=== PATIENT | male | born 1960 | race Caucasian/White ===

== ENCOUNTER → 2016-12-07 12:43 | Outpatient (CLI) | payer MEDICAID ==
[2012-09-25 10:32] VITALS: BMI 18.4
== END | disposition home or self-care (01) ==
LOC: D.US 12:43
DX: N23 Unspecified renal colic (principal)

== ENCOUNTER 2017-01-06 15:16 | Inpatient (IN) | payer MEDICAID ==
[~2017-01-06] VITALS: Ht 195.6 cm; Wt 65.8 kg
--- NOTE | 2017-01-06 15:40 | NUR ---
RECIEVED PT TO FLOOR AT THIS TIME, ORIENTED TO ROOM. IV STARTED BY JUAN MIGUEL DOWNS RN. ASSESSMENT DONE PER FLOWSHEET, HISTORY OBTAINED. BED IN LOW POSITION AND CALL LIGHT WITHIN REACH. WILL CONTINUE TO MONITOR.
[2017-01-06 15:58] VITALS: BP 117/73
[2017-01-06 16:31] LABS: BASOPHILS 0.6 % (0-2); EOSINOPHILS 5.5 % (0-7); HEMATOCRIT 38.7 % (42.0-54.0); IMMATURE GRANULOCYTES 0.2 % (0-5); LYMPHOCYTES 27.5 % (15-50); MCH 31.2 pg (26.0-34.0); MCHC 33.6 g/dL (31.0-37.0); MCV 92.8 fL (80.0-100.0); MONOCYTES 8.1 % (2-11); NEUTROPHILS 58.1 % (40-80); PLATELET COUNT 177 10x3/uL (130-400); RBC 4.17 10x6/uL (4.20-6.10); WBC 6.5 10x3/uL (4.8-10.8)
[2017-01-06 16:44] LABS: ALBUMIN 3.1 g/dL (3.4-5.0); ANION GAP 12.2 mmol/L (8-16); BILIRUBIN - TOTAL 0.36 mg/dL (0.2-1.3); CALCIUM 8.8 mg/dL (8.5-10.1); CARBON DIOXIDE 28.8 mmol/L (21.0-32.0); CREATININE - SERUM 1.3 mg/dL (0.6-1.3); PROTEIN - SERUM 7.2 g/dL (6.4-8.2)
[2017-01-06 17:47] VITALS: BP 117/73; BMI 17.2
[2017-01-06 20:00] VITALS: BP 104/65
[2017-01-07] VITALS: BP 122/58
[2017-01-07 04:00] VITALS: BP 121/61
[2017-01-07 04:54] LABS: BASOPHILS 0.6 % (0-2); EOSINOPHILS 5.7 % (0-7); HEMATOCRIT 37.5 % (42.0-54.0); HEMOGLOBIN 12.6 g/dL (13.5-17.5); IMMATURE GRANULOCYTES 0.2 % (0-5); LYMPHOCYTES 38.2 % (15-50); MCHC 33.6 g/dL (31.0-37.0); MCV 92.1 fL (80.0-100.0); MEAN PLATELET VOLUME 11.5 fL (7.4-10.4); MONOCYTES 9.2 % (2-11); NEUTROPHILS 46.1 % (40-80); PLATELET COUNT 190 10x3/uL (130-400); RBC 4.07 10x6/uL (4.20-6.10); RDW 13.9 % (11.5-14.5); WBC 6.2 10x3/uL (4.8-10.8)
[2017-01-07 05:33] LABS: ALBUMIN 2.7 g/dL (3.4-5.0); ANION GAP 11.9 mmol/L (8-16); BILIRUBIN - TOTAL 0.27 mg/dL (0.2-1.3); CALCIUM 8.7 mg/dL (8.5-10.1); CARBON DIOXIDE 27.8 mmol/L (21.0-32.0); CREATININE - SERUM 1.2 mg/dL (0.6-1.3); PROTEIN - SERUM 6.6 g/dL (6.4-8.2)
[2017-01-07 05:34] LABS: POTASSIUM - SERUM 4.7 mmol/L (3.5-5.1)
--- NOTE | 2017-01-07 07:15 | NUR ---
REPORT RECEIVED FROM METAL MACHINE OPERATOR NURSE. CALL LIGHT IN REACH.
[2017-01-07 08:05] VITALS: BP 121/66
[2017-01-07] MEDS ORDERED: PLAVIX75 MG PO (08:48)
[2017-01-07] MEDS ORDERED: LEXAPRO10 MG (08:49)
[2017-01-07] MEDS ORDERED: LIPITOR80 MG (08:49)
[2017-01-07] MEDS ORDERED: BAYER CHEWABLE81 MG PO (08:49)
[2017-01-07] MEDS ORDERED: LOPRESSOR25 MG PO (08:50)
[2017-01-07] MEDS ORDERED: PROAIR HFA8.5 GM INH (08:51)
[2017-01-07] MEDS ORDERED: HYDROCODON-ACE1 EAC7 PO (08:52)
--- NOTE | 2017-01-07 09:02 | NUR ---
ASSESSMENT COMPLETED. NORCO PO PER C/O PAIN OF 5 TO INCISION. SCDs EXPLAINED AND OFFERED BUT PATIENT REFUSED. REFUSES PASSWORD AT THIS TIME. SPUTUM CUP GIVEN TO PATIENT FOR SPUTUM SAMPLE. MED REC REVIEWED IN CHART. CARE PLAN ALSO REVIEWED. CALL LIGHT IN REACH. WILL CONTINUE WITH PLAN OF CARE.
[2017-01-07 10:37] VITALS: Ht 195.6 cm; Wt 65.8 kg
--- NOTE | 2017-01-07 11:06 | NUR ---
STATES PAIN HAS DECREASED TO A 5. HAD SHOWER AND AMBULATED IN ROOM.
[2017-01-07 12:12] VITALS: BP 114/69
--- NOTE | 2017-01-07 13:54 | NUR ---
REQUESTING ANOTHER PAIN PILL BUT NORCO IS ORDERED FOR EVERY 12 HOURS PRN. WILL CALL MD TO SEE IF PATIENT CAN TAKE IT LIKE HE IS AT HOME.
--- NOTE | 2017-01-07 14:59 | NUR ---
SPOKE WITH DR. BRIDGES. STATES PAIN MEDS CAN GET CHANGED TO EVERY 6 HOURS INSTEAD OF EVERY 4 HOURS.
--- NOTE | 2017-01-07 15:22 | NUR ---
ADMINISTERED NORCO PO. CALL LIGHT IN REACH.
[2017-01-07 16:07] VITALS: BP 119/75
--- NOTE | 2017-01-07 16:20 | NUR ---
STATES PAIN HAS DECREASED TO A 5.
--- NOTE | 2017-01-07 18:00 | NUR ---
AMBULATING IN HALLWAY. DENIES ANY NEEDS AT PRESENT.
--- NOTE | 2017-01-07 18:04 | NUR ---
NO CHNAGES IN INITIAL ASSESSMENT. CALL LIGHT IN REACH. STILL REFUSES SCDs. WILL CONTINUE WITH PLAN OF CARE.
--- NOTE | 2017-01-07 18:15 | NUR ---
SPUTUM CX COLLECTED AND SENT TO LAB.
[2017-01-07 20:00] VITALS: BP 133/77
[2017-01-08] VITALS: BP 100/66
--- NOTE | 2017-01-08 00:48 | NUR ---
LYING ON RIGHT SIDE WITH EYES CLOSED. RR EVEN U/L. NO S/S OF DISCOMFORT. BED IS LOW WITH SR UP X2. CALL LIGHT IN EACH.
[2017-01-08 05:21] LABS: BASOPHILS 0.7 % (0-2); EOSINOPHILS 5.1 % (0-7); HEMATOCRIT 36.4 % (42.0-54.0); HEMOGLOBIN 12.3 g/dL (13.5-17.5); IMMATURE GRANULOCYTES 0.2 % (0-5); LYMPHOCYTES 36.8 % (15-50); MCH 30.8 pg (26.0-34.0); MCHC 33.8 g/dL (31.0-37.0); MCV 91.2 fL (80.0-100.0); MEAN PLATELET VOLUME 11.3 fL (7.4-10.4); MONOCYTES 11.2 % (2-11); PLATELET COUNT 198 10x3/uL (130-400); RBC 3.99 10x6/uL (4.20-6.10); RDW 13.7 % (11.5-14.5); WBC 5.7 10x3/uL (4.8-10.8)
[2017-01-08 05:42] LABS: ALBUMIN 2.7 g/dL (3.4-5.0); ANION GAP 14.7 mmol/L (8-16); BILIRUBIN - TOTAL 0.37 mg/dL (0.2-1.3); CALCIUM 8.6 mg/dL (8.5-10.1); CARBON DIOXIDE 24.3 mmol/L (21.0-32.0); CREATININE - SERUM 1.1 mg/dL (0.6-1.3); PROTEIN - SERUM 6.5 g/dL (6.4-8.2)
--- NOTE | 2017-01-08 07:15 | NUR ---
REPORT RECEIVED FROM DIRECT CARE PROFESSIONAL NURSE. CALL LIGHT IN REACH.
[2017-01-08 08:24] VITALS: BP 144/86
[2017-01-08] MEDS ORDERED: LEVAQUIN500 MG PO (08:26)
--- NOTE | 2017-01-08 09:00 | NUR ---
ASSESSMENT COMPLETE. IV TO FA PATENT. NS INFUSING AT 100 CC/HR VIA PUMP. CHARLEY INTACT TO PENILE INCISION. DENIES ANY NEEDS AT THIS TIME.
--- NOTE | 2017-01-08 10:07 | NUR ---
NORCO PO PER C/O PAIN OF 8. IV DC'D WITH TIP INTACT.
--- NOTE | 2017-01-08 12:23 | NUR ---
JOCY PO. DC INSTRUCTIONS EXPLAINED TO PATIENT. VERBALIZED UNDERSTANDING. DC'D TO VEHICLE WITH . REFUSED WC.
== END 2017-01-08 12:23 | disposition home or self-care (01) | DRG 195 ==
LOC: D.MS 15:16
PROVIDERS: ADMIT Family Medicine
DX: J18.9 Pneumonia, unspecified organism (principal); I10 Essential (primary) hypertension; F17.200 Nicotine dependence, unspecified, uncomplicated

== ENCOUNTER 2017-06-05 13:07 | Emergency (ER) | payer MEDICAID ==
[2017-01-07 10:37] VITALS: BMI 17.2
[~2017-06-05 13:07] MED LIST: BAYER CHEWABLE81 MG PO; HYDROCODON-ACE1 EAC7 PO; LEVAQUIN500 MG PO; LEXAPRO10 MG; LIPITOR80 MG; LOPRESSOR25 MG PO; PLAVIX75 MG PO; PROAIR HFA8.5 GM INH
[2017-06-05 13:37] LABS: BASOPHILS 0.3 % (0-2); EOSINOPHILS 1.2 % (0-7); HEMATOCRIT 40.2 % (42.0-54.0); HEMOGLOBIN 13.7 g/dL (13.5-17.5); IMMATURE GRANULOCYTES 0.2 % (0-5); LYMPHOCYTES 20.1 % (15-50); MCH 31.6 pg (26.0-34.0); MCHC 34.1 g/dL (31.0-37.0); MCV 92.6 fL (80.0-100.0); MEAN PLATELET VOLUME 11.9 fL (7.4-10.4); MONOCYTES 5.7 % (2-11); NEUTROPHILS 72.5 % (40-80); PLATELET COUNT 169 10x3/uL (130-400); RBC 4.34 10x6/uL (4.20-6.10); RDW 12.8 % (11.5-14.5); WBC 9.3 10x3/uL (4.8-10.8)
[2017-06-05 13:59] LABS: ALBUMIN 3.6 g/dL (3.4-5.0); ANION GAP 13.8 mmol/L (8-16); BILIRUBIN - TOTAL 0.3 mg/dL (0.2-1.3); CALCIUM 8.7 mg/dL (8.5-10.1); CARBON DIOXIDE 27.9 mmol/L (21.0-32.0); CREATININE - SERUM 1.4 mg/dL (0.6-1.3); POTASSIUM - SERUM 3.7 mmol/L (3.5-5.1); PROTEIN - SERUM 7.2 g/dL (6.4-8.2)
[2017-06-05 14:35] LABS: APPEARANCE CLEAR (CLEAR); COLOR DK YELLOW (YELLOW); SPECIFIC GRAVITY 1.015 (1.005-1.020)
[2017-06-05 14:36] LABS: BILIRUBIN NEGATIVE (NEGATIVE); GLUCOSE NEGATIVE (NEGATIVE); KETONE NEGATIVE (NEGATIVE); NITRITE NEGATIVE (NEGATIVE); PROTEIN NEGATIVE (NEGATIVE); UDS - AMPHET NEGATIVE QUAL (NEGATIVE); UDS - BARB NEGATIVE QUAL (NEGATIVE); UDS - BENZO POSITIVE QUAL (NEGATIVE); UDS - COCAINE NEGATIVE QUAL (NEGATIVE); UDS - OPIATE NEGATIVE QUAL (NEGATIVE); UDS - PCP NEGATIVE QUAL (NEGATIVE); UDS - THC POSITIVE QUAL (NEGATIVE)
== END 2017-06-05 15:49 | disposition home or self-care (01) ==
LOC: D.ER 13:07
PROVIDERS: Family Medicine
DX: R10.31 Right lower quadrant pain (principal); I10 Essential (primary) hypertension; F17.200 Nicotine dependence, unspecified, uncomplicated

== ENCOUNTER 2017-08-14 13:24 | Emergency (ER) | payer MEDICAID ==
[2017-01-07 10:37] VITALS: BMI 17.2
[2017-08-14 14:42] LABS: HEMATOCRIT 37.9 % (42.0-54.0); HEMOGLOBIN 12.7 g/dL (13.5-17.5); LYMPHOCYTES 26.7 % (15-50); MCH 30.7 pg (26.0-34.0); MCHC 33.5 g/dL (31.0-37.0); MCV 91.5 fL (80.0-100.0); MEAN PLATELET VOLUME 11.5 fL (7.4-10.4); RBC 4.14 10x6/uL (4.20-6.10); RDW 13.9 % (11.5-14.5); WBC 4.6 10x3/uL (4.8-10.8)
[2017-08-14 14:43] LABS: PLATELET COUNT 105 10x3/uL (130-400)
[2017-08-14 14:52] LABS: ALBUMIN 3.4 g/dL (3.4-5.0); ANION GAP 12.5 mmol/L (8-16); BILIRUBIN - TOTAL 0.25 mg/dL (0.2-1.3); CALCIUM 8.3 mg/dL (8.5-10.1); CARBON DIOXIDE 27.7 mmol/L (21.0-32.0); CREATININE - SERUM 1.3 mg/dL (0.6-1.3); POTASSIUM - SERUM 4.2 mmol/L (3.5-5.1); PROTEIN - SERUM 7.2 g/dL (6.4-8.2)
== END 2017-08-14 16:47 | disposition home or self-care (01) ==
LOC: D.ER 13:24
PROVIDERS: Physician Assistant
DX: R51 Headache (principal); R41.3 Other amnesia; Z85.528 Personal history of other malignant neoplasm of kidney; D61.818 Other pancytopenia; F17.200 Nicotine dependence, unspecified, uncomplicated

== ENCOUNTER → 2018-04-04 09:44 | Outpatient (CLI) | payer OTHER ==
[2017-01-07 10:37] VITALS: BMI 17.2
[~2018-04-04 09:44] MED LIST changes: +NORCO 7.5/325 T1 TA1 PO
== END | disposition home or self-care (01) ==
LOC: D.RAD 08:00
DX: Z02.71 Encounter for disability determination (principal)

== ENCOUNTER 2018-04-20 17:35 | Emergency (ER) | payer MEDICAID ==
[~2018-04-20] VITALS: Ht 195.6 cm; Wt 68.2 kg
[~2018-04-20 17:35] MED LIST changes: -NORCO 7.5/325 T1 TA1 PO
[2018-04-20 18:06] VITALS: Ht 195.6 cm; Wt 68.2 kg
[2018-04-20] MEDS ORDERED: NORCO 7.5/325 T1 TA1 PO (19:10)
[2018-04-20 19:55] VITALS: BP 132/81
== END 2018-04-20 19:56 | disposition home or self-care (01) ==
LOC: D.ER 17:35
DX: Z91.81 History of falling (principal); G89.18 Other acute postprocedural pain; M54.31 Sciatica, right side; I10 Essential (primary) hypertension; F17.200 Nicotine dependence, unspecified, uncomplicated